=== PATIENT | male | born 1945 | race Caucasian/White ===

== ENCOUNTER 2022-08-02 08:30 | Observation (INO) ==
[~2022-08-02 08:30] MED LIST: Buffered Lidocaine 1% SYRIN 1 ml INTRADERM ONE; HYDROcodone/ACETAMIN 5/325 mg TAB PO PRN; Lactated Ringers 1000 ml BAG 1,000 ML IV SCH; Metoclopramide 5 MG/ML VIAL (10 mg) IV PRN; Naloxone 0.4 mg VIAL 0.4 mg/ml 1 ml VIAL IV PRN; Ondansetron 4 mg VIAL 2 MG/ML 2 ml VIAL IV PRN
[2022-08-02] MEDS ORDERED: ceFAZolin 2 GM PREMIX 2 GM/50 ML BAG ONE (13:11)
[2022-08-02] MEDS ORDERED: Rocuronium 50 mg VIAL 10 mg/ml 5 ml VIAL (50 mg) ONE ×2 (14:03→16:08)
[2022-08-02] MEDS ORDERED: Propofol 10 MG/ML 20 ML BTL ONE (14:03)
[2022-08-02] MEDS ORDERED: fentaNYL 250 mcg/5 ml 50 MCG/ML 5 ml VIAL (250 MCG) ONE (14:03)
[2022-08-02] MEDS ORDERED: Lidocaine 2% PF 5 ML VIAL ONE (14:04)
[2022-08-02] MEDS ORDERED: Midazolam 2 mg/2 ml VIAL 1 mg/ml 2 ml VIAL (2 mg) ONE (14:52)
[2022-08-02] MEDS ORDERED: Glycopyrrolate IV 0.2 MG/ML 1 ML VIAL ONE ×3 (16:07→17:06)
[2022-08-02] MEDS ORDERED: Ondansetron 4 mg VIAL 2 MG/ML 2 ml VIAL ONE (16:08)
[2022-08-02] MEDS ORDERED: Dexamethasone IV 4 MG/ML VIAL 1 ml VIAL ONE (16:08)
[2022-08-02] MEDS ORDERED: HYDROmorphone 0.5 MG/0.5 ML SYRINGE ONE (16:16)
[2022-08-02] MEDS ORDERED: Lactulose 30 ml UDC PO PRN (18:07)
[2022-08-02] MEDS ORDERED: Ondansetron 4 mg VIAL 2 MG/ML 2 ml VIAL IV PRN (18:07)
[2022-08-02] MEDS ORDERED: Morphine 2 MG/ML SYRINGE IV PRN (18:07)
[2022-08-02] MEDS ORDERED: Ondansetron ODT 4 mg TAB 4 MG TAB PO PRN (18:07)
[2022-08-02] MEDS ORDERED: Magnesium Hydroxide LIQ 30 ML UDC PO PRN (18:07)
[2022-08-02] MEDS ORDERED: ROPIVACAINE 5 MG/ML 30 ML BTL (0.5%) ONE (18:28)
[2022-08-02] MEDS ORDERED: Acetaminophen IV 1 GM/100ML 1,000 MG/100 ML BAG IV ONE ×2 (19:39→19:41)
[2022-08-02] MEDS ORDERED: fentaNYL 100 mcg/2 ml 50 MCG/ML VIAL ONE ×2 (20:02→20:30)
[2022-08-02] MEDS: fentaNYL 100 mcg/2 ml 50 MCG/ML VIAL IV PRN ×5 (20:03→20:31)
[2022-08-03] MEDS: ceFAZolin 1 GM ADVAN 1 GM in NS 0.9% 50 ML 50 ML IVPB SCH ×3 (00:40→17:43)
[2022-08-03] MEDS: Magnesium Hydroxide LIQ 30 ML UDC PO SCH ×3 (00:41→21:19)
[2022-08-03 06:09] LABS: Hematocrit 35 % (42-52); Hemoglobin 11.7 g/dL (14.0-18.0); Mean Platelet Volume 7.8 fL (7.4-10.4); Platelet Count 222 10^3/uL (150-450)
[2022-08-03 06:28] LABS: Calcium 8.4 mg/dL (8.6-10.3); Creatinine, Serum 0.7 mg/dL (0.67-1.17); eGFR CKD-EPI 96.1 (>60)
[2022-08-03] MEDS: Lactated Ringers 1000 ml BAG 1,000 ML IV SCH ×2 (09:05→21:22)
[2022-08-03] MEDS: Vitamin THERAPEUTIC TAB PO SCH (09:48)
[2022-08-04 06:48] LABS: Hematocrit 34 % (42-52); Hemoglobin 11.6 g/dL (14.0-18.0); Mean Platelet Volume 8.1 fL (7.4-10.4); Platelet Count 208 10^3/uL (150-450)
[2022-08-04] MEDS: Vitamin THERAPEUTIC TAB PO SCH (10:14)
[2022-08-04] MEDS: Magnesium Hydroxide LIQ 30 ML UDC PO SCH (10:15)
== END 2022-08-04 10:00 | disposition home or self-care (01) ==
LOC: INTOOBSV 12:21 → AA 12:21 → SSU 21:45
PROVIDERS: ADMIT Orthopaedic Surgery Adult Reconstructive Orthopaedic Surgery; ATTEND Orthopaedic Surgery Adult Reconstructive Orthopaedic Surgery

== ENCOUNTER 2023-05-30 07:30 | Inpatient (IN) ==
[~2023-05-30 07:30] MED LIST changes: +Famotidine IV 10 MG/ML 2 ml VIAL (20 mg) IV ONE; -HYDROcodone/ACETAMIN 5/325 mg TAB PO PRN; -Metoclopramide 5 MG/ML VIAL (10 mg) IV PRN; -Naloxone 0.4 mg VIAL 0.4 mg/ml 1 ml VIAL IV PRN; -Ondansetron 4 mg VIAL 2 MG/ML 2 ml VIAL IV PRN
[2023-05-30] MEDS ORDERED: Phenylephrine IV 10 MG/ML 1 ml VIAL ONE (08:25)
[2023-05-30] MEDS ORDERED: Ondansetron 4 mg VIAL 2 MG/ML 2 ml VIAL ONE (08:25)
[2023-05-30] MEDS ORDERED: Glycopyrrolate IV 0.2 MG/ML 1 ML VIAL ONE (08:25)
[2023-05-30] MEDS ORDERED: Lidocaine 2% PF 5 ML VIAL ONE (08:26)
[2023-05-30] MEDS ORDERED: fentaNYL 100 mcg/2 ml 50 MCG/ML VIAL ONE ×2 (08:27→08:47)
[2023-05-30] MEDS ORDERED: Midazolam 2 mg/2 ml VIAL 1 mg/ml 2 ml VIAL (2 mg) ONE (08:27)
[2023-05-30] MEDS ORDERED: ROPIVACAINE 5 MG/ML 30 ML BTL (0.5%) ONE ×2 (08:33→08:47)
[2023-05-30] MEDS ORDERED: Famotidine IV 10 MG/ML 2 ml VIAL (20 mg) ONE (08:33)
[2023-05-30] MEDS ORDERED: ceFAZolin 2 GM in NS PREMIX 2 GM/100 ML BAG IVPB ONE (08:33)
[2023-05-30] MEDS ORDERED: Midazolam 5 mg/5 ml VIAL 1 mg/ml 5 ml VIAL (5 mg) ONE (08:47)
[2023-05-30 08:59] LABS: Rapid COVID-19 Molecular Undetected (Undetected)
[2023-05-30] MEDS ORDERED: fentaNYL 100 mcg/2 ml 50 MCG/ML VIAL IV PRN (09:14)
[2023-05-30] MEDS ORDERED: Naloxone 0.4 mg VIAL 0.4 mg/ml 1 ml VIAL IV PRN (09:14)
[2023-05-30] MEDS ORDERED: HYDROmorphone 1 MG/1 ML SYRINGE IV PRN (09:14)
[2023-05-30] MEDS ORDERED: Propofol 10 MG/ML 20 ML BTL ONE (09:42)
[2023-05-30] MEDS ORDERED: HYDROmorphone 0.5 MG/0.5 ML SYRINGE ONE ×2 (10:14→10:34)
[2023-05-30] MEDS ORDERED: KETAMINE HCL 10 MG/ML 20 ml VIAL (200 MG) ONE (10:14)
[2023-05-30] MEDS ORDERED: Dexamethasone IV 4 MG/ML VIAL 1 ml VIAL ONE (10:17)
[2023-05-30] MEDS ORDERED: Metoclopramide 5 MG/ML VIAL (10 mg) ONE (10:21)
[2023-05-30] MEDS ORDERED: fentaNYL 250 mcg/5 ml 50 MCG/ML 5 ml VIAL (250 MCG) ONE (10:34)
[2023-05-30] MEDS ORDERED: Dexmedetomidine 200 mcg/2 ml 2 ml VIAL (200 mcg) ONE (10:38)
[2023-05-30] MEDS ORDERED: Ondansetron ODT 4 mg TAB 4 MG TAB PO PRN (11:02)
[2023-05-30] MEDS ORDERED: Morphine 2 MG/ML SYRINGE IV PRN (11:02)
[2023-05-30] MEDS ORDERED: Lactulose 30 ml UDC PO PRN (11:02)
[2023-05-30] MEDS ORDERED: Magnesium Hydroxide LIQ 30 ML UDC PO PRN (11:02)
[2023-05-30] MEDS ORDERED: Ondansetron 4 mg VIAL 2 MG/ML 2 ml VIAL IV PRN (11:02)
[2023-05-30] MEDS: Lactated Ringers 1000 ml BAG 1,000 ML IV SCH (15:18)
[2023-05-30] MEDS: ceFAZolin 1 GM ADVAN 1 GM in NS 0.9% 50 ML 50 ML IVPB SCH (18:33)
[2023-05-30] MEDS: Magnesium Hydroxide LIQ 30 ML UDC PO SCH (22:17)
[2023-05-31] MEDS: Lactated Ringers 1000 ml BAG 1,000 ML IV SCH (01:19)
[2023-05-31] MEDS: ceFAZolin 1 GM ADVAN 1 GM in NS 0.9% 50 ML 50 ML IVPB SCH ×2 (01:52→10:06)
[2023-05-31 06:31] LABS: Platelet Count 243 10^3/uL (150-450)
[2023-05-31 06:47] LABS: Calcium 8.7 mg/dL (8.6-10.3); Creatinine, Serum 0.7 mg/dL (0.67-1.17); Potassium 4.4 mmol/L (3.5-5.0); eGFR CKD-EPI 95.5 (>60)
[2023-05-31 06:49] LABS: Hemoglobin 12.3 g/dL (13.2-16.3); Mean Platelet Volume 8.1 fL (7.5-11.2)
[2023-05-31] MEDS: Magnesium Hydroxide LIQ 30 ML UDC PO SCH (08:48)
[2023-05-31] MEDS ORDERED: Vitamin THERAPEUTIC TAB PO SCH (09:00)
[2023-05-31 10:25] VITALS: BP 128/78
== END 2023-05-31 12:00 | disposition home or self-care (01) | DRG 470 ==
LOC: INTOOBSV 08:19 → AA 08:19 → OBSVTOIN 08:19 → SSU 11:02
PROVIDERS: ADMIT Orthopaedic Surgery Adult Reconstructive Orthopaedic Surgery; ATTEND Orthopaedic Surgery Adult Reconstructive Orthopaedic Surgery